=== PATIENT | male | born 1975 | race Caucasian/White ===

== ENCOUNTER 2020-03-16 13:33 | Outpatient (CLI) | payer OTHER ==
--- NOTE | 2020-04-06 12:31 | OP ---
DATE OF PROCEDURE: 03/16/2020 Bilateral lower extremity Doppler examination was performed on 03/16. On the right, all waveforms are triphasic. The posterior tibial waveform on the right has diminished peaked waveform. Ankle-brachial index on the right is 0.94. On the left, waveforms are triphasic in the common femoral and popliteal arteries. The posterior tibial and dorsalis pedis arteries are biphasic waveforms with diminished waveform peaks from the popliteal, posterior tibial and dorsalis pedis arteries. Ankle-brachial index is 1.05 in the dorsalis pedis artery and 0.60 in the posterior tibial artery. 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 Significance of the arterial disease will have to be clinically correlated. Job ID: [id number]
== END 2020-03-16 13:34 | disposition home or self-care (01) ==
LOC: ULT 13:33
PROVIDERS: ATTEND Psychiatry & Neurology Neurology
DX: Z02.71 Encounter for disability determination (principal); I73.9 Peripheral vascular disease, unspecified
CPT/HCPCS: 93922